=== PATIENT | female | born 1960 | race Caucasian/White ===

== ENCOUNTER → 2020-09-28 | Day surgery (SDC) | payer OTHER, MEDICARE ==
[~2020-09-28] MED LIST: ALBUTEROL INH; ALLOPURINOL100 MG PO; BREO ELLIPTA 11 EACH INH; BUSPIRONE HCL7.5 MG PO; CARVEDILOL25 MG PO; CYMBALTA 30 MG30 MG PO; ESTRADIOL2 MG PO; GLYCOPYRROL PO; HYDROCODON-ACE1 EAC4 PO; LIPITOR TAB 2020 MG PO; LISINOPRIL20 MG PO; MELATONIN10 M2 PO; MONTELUKAST SOD10 MG PO; PROTONIX 40 MG40 M1 PO; SOTALOL80 MG PO
[2020-09-28 07:13] LABS: HEMOGLOBIN 15.8 gm/dl (12.3-15.3); RED BLOOD COUNT 4.9 M/UL (4.00-5.10); WHITE BLOOD COUNT 6.9 K/UL (4.5-11.0)
[2020-09-28 07:42] LABS: BUN/CREATININE RATIO 17 (0-10)
== END | disposition home or self-care (01) ==
LOC: OR 06:24
PROVIDERS: Orthopaedic Surgery
DX: G56.02 Carpal tunnel syndrome, left upper limb (principal); M65.4 Radial styloid tenosynovitis [de Quervain]; J30.9 Allergic rhinitis, unspecified; J44.9 Chronic obstructive pulmonary disease, unspecified; F10.10 Alcohol abuse, uncomplicated; I10 Essential (primary) hypertension; E78.5 Hyperlipidemia, unspecified; I49.9 Cardiac arrhythmia, unspecified; K21.9 Gastro-esophageal reflux disease without esophagitis; E66.01 Morbid (severe) obesity due to excess calories; M79.7 Fibromyalgia; F41.9 Anxiety disorder, unspecified; D64.9 Anemia, unspecified; Z88.6 Allergy status to analgesic agent; Z79.82 Long term (current) use of aspirin; Z87.891 Personal history of nicotine dependence
CPT/HCPCS: 80048; 85025; J0171; J0690; J1100; J2001; J2250; J2370; J2405; J2704; J3010; J7120